=== PATIENT | male | born 1985 | race Caucasian/White ===

== ENCOUNTER → 2016-06-02 | Outpatient (CLI) | payer OTHER ==
[~2016-06-02] MED LIST: CLARITIN 10MG T10 MG PO; CONCERTA27 MG PO; GUANFACINE HCL E1 MG PO; HALDOL 0.5 MG0.5 MG PO; MELOXICAM7.5 MG PO; PRILOSEC OTC20 MG PO; TENORMIN 25 MG25 MG PO; TOFRANIL PO
== END ==
LOC: CT 13:00
DX: R93.8 Abnormal findings on diagnostic imaging of other specified body structures (principal)
CPT/HCPCS: 71250

== ENCOUNTER → 2016-06-21 | Day surgery (SDC) | payer OTHER | END | disposition home or self-care (01) | LOC: OR 06-16 07:30 | PROVIDERS: Internal Medicine Pulmonary Disease | PROC: 0BB58ZX Excision of Right Middle Lobe Bronchus, Via Natural or Artificial Opening Endoscopic, Diagnostic (ICD-10-PCS; 2016-06-21) | PROC: 0B958ZX Drainage of Right Middle Lobe Bronchus, Via Natural or Artificial Opening Endoscopic, Diagnostic (ICD-10-PCS; principal; 2016-06-21 07:30) | DX: J84.10 Pulmonary fibrosis, unspecified (principal); J42 Unspecified chronic bronchitis; D50.9 Iron deficiency anemia, unspecified; M19.90 Unspecified osteoarthritis, unspecified site; F41.9 Anxiety disorder, unspecified; I10 Essential (primary) hypertension; Z79.899 Other long term (current) drug therapy; Z98.818 Other dental procedure status; Z87.19 Personal history of other diseases of the digestive system | CPT/HCPCS: 71010; 76000; 87015; 87070; 87102; 87116; 87205; 88341; 88342; J7120 ==

== ENCOUNTER → 2020-10-05 | Outpatient (CLI) | payer OTHER ==
[~2020-10-05] MED LIST changes: +COGENTIN 2MG TAB2 MG PO; +FISH OIL + D31 EACH PO; +TENORMIN 50 MG50 MG PO; +TESSALON PERLE100 MG PO; +ZANTAC150 MG PO
== END ==
LOC: KOH-I 08:30
DX: S06.0X0A Concussion without loss of consciousness, initial encounter (principal)
CPT/HCPCS: 70450

== ENCOUNTER → 2021-02-23 | Outpatient (CLI) | payer OTHER | LOC: EXRD 15:30 | DX: J69.0 Pneumonitis due to inhalation of food and vomit (principal); T17.908A Unspecified foreign body in respiratory tract, part unspecified causing other injury, initial encounter; R93.89 Abnormal findings on diagnostic imaging of other specified body structures; J30.9 Allergic rhinitis, unspecified; D50.9 Iron deficiency anemia, unspecified; F41.9 Anxiety disorder, unspecified; M19.90 Unspecified osteoarthritis, unspecified site; R91.8 Other nonspecific abnormal finding of lung field | CPT/HCPCS: 71046 ==

== ENCOUNTER → 2021-07-08 | Outpatient (CLI) | payer OTHER ==
[2021-07-08 15:32] LABS: BUN/CREATININE RATIO 16 (0-10)
[2021-07-09 10:16] LABS: HBSAG SCREEN Negative (Negative); HEP A AB, IGM Negative (Negative); HEP B CORE AB, IGM Negative (Negative); HEP C VIRUS AB 0.3 (0.0-0.9)
== END ==
LOC: LAB 14:12
PROVIDERS: Physician Assistant Medical
DX: R74.01 Elevation of levels of liver transaminase levels (principal)
CPT/HCPCS: 36415; 80053; 80074

== ENCOUNTER → 2021-07-14 | Outpatient (CLI) | payer OTHER | LOC: KOH-I 08:04 | DX: R74.01 Elevation of levels of liver transaminase levels (principal); K76.0 Fatty (change of) liver, not elsewhere classified | CPT/HCPCS: 76700 ==

== ENCOUNTER → 2021-09-21 | Outpatient (CLI) | payer OTHER ==
[2021-09-22 21:08] LABS: HEPATITIS C QUANTITATION HCV Not Detected IU/mL (.)
== END ==
LOC: LAB 14:35
PROVIDERS: Physician Assistant Medical
DX: Z86.19 Personal history of other infectious and parasitic diseases (principal)
CPT/HCPCS: 36415; 87522